=== PATIENT | male | born 1950 | race Caucasian/White ===

== ENCOUNTER 2023-09-17 13:50 | Emergency (ER) | payer MEDICARE ==
[~2023-09-17] VITALS: Ht 185.4 cm; Wt 86.2 kg
[2023-09-17] MEDS ORDERED: HYDROCODONE/ACETAMINOPHEN 5/325 MG TAB PO ONE (18:00)
[2023-09-17 19:54] VITALS: BP 120/65; PULSE 78; RESP 14; O2SAT 97
== END 2023-09-17 20:01 | disposition home or self-care (01) ==
LOC: EDH 13:50
DX: S43.102A Unspecified dislocation of left acromioclavicular joint, initial encounter (principal); E78.00 Pure hypercholesterolemia, unspecified; I10 Essential (primary) hypertension; W18.39XA Other fall on same level, initial encounter; Y93.89 Activity, other specified; Y92.89 Other specified places as the place of occurrence of the external cause; Y99.8 Other external cause status
CPT/HCPCS: 73030

== ENCOUNTER → 2023-11-14 | Outpatient (CLI) | payer MEDICARE | END | disposition home or self-care (01) | LOC: RAH 13:48 | PROVIDERS: ATTEND Family Medicine | DX: S46.012D Strain of muscle(s) and tendon(s) of the rotator cuff of left shoulder, subsequent encounter (principal); M21.822 Other specified acquired deformities of left upper arm; X58.XXXD Exposure to other specified factors, subsequent encounter | CPT/HCPCS: 73221 ==